=== PATIENT | male | born 1970 | race Caucasian/White ===

== ENCOUNTER 2018-11-28 13:17 | Emergency (ER) | payer OTHER ==
--- NOTE | 2018-11-28 13:46 | EDM.PDOC ---
ED HPI GENERAL MEDICAL PROBLEM - General Chief Complaint: Upper Extremity Injury/Pain Stated Complaint: right forearm injury and pain Time Seen by Provider: 11/28/18 13:30 Source of Information: Reports: Patient, RN History Limitations: Reports: No Limitations - History of Present Illness INITIAL COMMENTS - FREE TEXT/NARRATIVE: 48 yr male presents to the ER after [place] the hockey arena. He was skating and coming into th goal and tripped and put hand up and hyperextended the hand to the arm. He has ice to the area and states severe pain to arm. He has taken his medications for the day. States no allergies to medications, but does have environmental allergies. 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 States he thinks he injured this arm in the past as a young child. He does use an inhaler as needed for asthma and does take Depakote and Cymbalta and Lamotrigine. Review of Systems - Review of Systems Review Of Systems: See Below Constitutional: Reports: No Symptoms Musculoskeletal: Reports: Arm Pain, Other (left forearm pain) Skin: Reports: No Symptoms Neurological: Reports: No Symptoms Psychiatric: Reports: No Symptoms ED EXAM, GENERAL - Physical Exam Exam: See Below General Appearance: Alert, No Apparent Distress Nose: Normal Inspection, Normal Mucosa Throat/Mouth: Normal Inspection, Normal Voice, No Airway Compromise Head: Atraumatic, Normocephalic Neck: Normal Inspection, Supple, Non-Tender, Full Range of Motion Respiratory/Chest: No Respiratory Distress, Lungs Clear Extremities: Normal Capillary Refill, Limited Range of Motion, Other (Minimal swelling noted to right wrist area.) Neurological: Alert, Oriented, Normal Cognition Course - Orders/Labs/Meds Orders: Active Orders 24 hr Category Date Time Status Forearm 2V Rt [CR] Stat Exams 11/28/18 13:38 Ordered - Re-Assessments/Exams Free Text/Narrative Re-Assessment/Exam: 11/28/18 14:24 Review of x-ray, horizontal fracture noted to radius, nondisplaced. Ice applied to area. Immobilizer placed to forearm. Recommend PCP visit within 1 week for casting to allow for any swelling to resolve. Recommend to elevate arm above level of heart and use of ice 20-30 minutes 5x/ day. May take Ibuprofen 600-800 mg tid and alternate with Tylenol as needed and no more than 3,000mg per day. Pt states understanding. Departure - Departure Time of Disposition: 14:27 Disposition: Home, Self-Care 01 Condition: Good Clinical Impression: Fracture of radius - Discharge Information *PRESCRIPTION DRUG MONITORING PROGRAM REVIEWED*: Not Applicable *COPY OF PRESCRIPTION DRUG MONITORING REPORT IN PATIENT TRINH: Not Applicable Referrals: PCP,None [Primary Care Provider] - Forms: ED Department Discharge - My Orders Last 24 Hours: My Active Orders 11/28/18 13:38 Forearm 2V Rt [CR] Stat - Assessment/Plan Last 24 Hours: My Active Orders 11/28/18 13:38 Forearm 2V Rt [CR] Stat Plan: Immobilizer placed to forearm. Recommend PCP visit within 1 week for casting to allow for any swelling to resolve. Recommend to elevate arm above level of heart and use of ice 20-30 minutes 5x/day. May take Ibuprofen 600-800 mg tid and alternate with Tylenol as needed and no more than 3,000mg per day. Pt states understanding.
--- NOTE | 2018-11-28 19:27 | CR ---
DATE OF SERVICE: 11/28/18 CLINICAL DATA: injury right forearm RIGHT WRIST: There is a comminuted fracture through the distal radius. No other acute abnormalities. [id number] [facility]
== END 2018-11-28 14:23 | disposition home or self-care (01) ==
LOC: LB.ED 13:17
DX: S52.501A Unspecified fracture of the lower end of right radius, initial encounter for closed fracture (principal); W22.8XXA Striking against or struck by other objects, initial encounter; Y93.22 Activity, ice hockey
CPT/HCPCS: 73100-RT; 99283